=== PATIENT | male | born 2000 | race African-American/Black ===

== ENCOUNTER 2019-01-21 23:10 | Emergency (ER) | payer SELFPAY ==
[2019-01-21 23:16] VITALS: BP 127/64; PULSE 81; BMI 26.2
--- NOTE | 2019-01-22 00:15 | PDOC ---
History of Present Illness - General Chief Complaint: Pain Stated Complaint: L KNEE PAIN Time Seen by Provider: 01/21/19 23:56 History Source: Patient - History of Present Illness Initial Comments: 01/22/19 00:13 18 year old male while playing basketball hurt left knee . " i felt like my knee joint came out of place." at 9.30 pm. patient unable to walk on it since. patient is able leg raise. patient incidentally noted to have temp 100.6. patient denies cough, URI sx, abdominal pain, urinary symptoms, headache. patient reports that he has been playing outside . NO PMHX Past History - Past Medical History Allergies/Adverse Reactions: Allergies Allergy/AdvReac Type Severity Reaction Status Date / Time No Known Allergies Allergy Verified 01/21/19 23:16 COPD: No - Suicide/Smoking/Psychosocial Hx Smoking History: Never smoked Review of Systems - Review of Systems Able to Perform ROS?: Yes Is the patient limited Thai proficient: No Constitutional: No: Symptoms Reported, See HPI, Chills, Diaphoresis, Fever, Loss of Appetite, Malaise, Night Sweats, Weakness, Weight Stable, Unintentional Wgt. Loss, Unexplained wgt Loss, Other HEENTM: No: Symptoms Reported, See HPI, Eye Pain, Blurred Vision, Tearing, Recent change in vision, Double Vision, Cataracts, Ear Pain, Ocular Prothesis, Ear Discharge, Nose Pain, Nose Congestion, Tinnitus, Nose Bleeding, Hearing Loss , Throat Pain, Throat Swelling, Mouth Pain, Dental Problems, Difficulty Swallowing, Mouth Swelling, Other Respiratory: No: Symptoms reported, See HPI, Cough, Orthopnea, Shortness of Breath, SOB with Exertion, SOB at Rest, Stridor, Wheezing, Productive cough, Hemoptysis, Other Musculoskeletal: Yes: Other (left knee pain) *Physical Exam - Vital Signs Last Vital Signs Temp Pulse Resp BP Pulse Ox 100.6 F H 81 18 127/64 99 01/21/19 23:13 01/21/19 23:13 01/21/19 23:13 01/21/19 23:13 01/21/19 23:13 - Physical Exam General Appearance: Yes: Appropriately Dressed Respiratory/Chest: positive: Lungs Clear, Normal Breath Sounds Gastrointestinal/Abdominal: positive: Normal Bowel Sounds, Soft. negative: Tender Extremity: positive: Normal Capillary Refill, Normal Inspection, Normal Range of Motion, Other (able to leg raise . has swelling and pain to left lateral inner aspect of left knee. no displaced patella noted. ) Integumentary: positive: Normal Color, Dry, Warm Neurologic: positive: Fully Oriented, Alert, Normal Mood/Affect Progress Note - Progress Note Progress Note: A: left knee sprain P: RICE knee immobilizer Ortho follow up *DC/Admit/Observation/Transfer Diagnosis at time of Disposition: Left knee sprain Qualifiers: Encounter type: initial encounter Involved ligament of knee: unspecified ligament Qualified Code(s): S83.92XA - Sprain of unspecified site of left knee, initial encounter - Discharge Dispostion Disposition: HOME - Referrals Referrals: Jose Neal MD [Primary Care Provider] - Tien Lawrence MD [Staff Physician] - Call tomorrow - Patient Instructions Printed Discharge Instructions: Knee Sprain Additional Instructions: continue ice for the first 24 hours. Elevate knee as much as possible. keep knee immobilizer on. You may take ibuprofen every 6 hours as needed for pain. follow-up with an orthopedic doctor as soon as possible A referral was given to you. Return to the emergency room for any worsening symptoms. - Post Discharge Activity Forms/Work/School Notes: Back to Work
[2019-01-22] MEDS ORDERED: KETOROLAC TROMETHAMINE 30 MG/1 ML VIAL IM ONE (00:16)
[2019-01-22] MEDS ORDERED: KETOROLAC TROMETHAMINE 30 MG/1 ML VIAL ONE (00:54)
[2019-01-22] MEDS ORDERED: ACETAMINOPHEN 325 MG TABLET (FP) PO ONE (01:18)
[2019-01-22] MEDS ORDERED: ACETAMINOPHEN 325 MG TABLET (FP) ONE (01:21)
[2019-01-22 02:52] VITALS: TEMP 98.6
== END 2019-01-22 02:10 | disposition home or self-care (01) ==
LOC: JER 23:10
PROC: 2W3RXYZ Immobilization of Left Lower Leg using Other Device (ICD-10-PCS; principal; 2019-01-21)
PROC: 3E0233Z Introduction of Anti-inflammatory into Muscle, Percutaneous Approach (ICD-10-PCS; 2019-01-21)
DX: S83.8X2A Sprain of other specified parts of left knee, initial encounter (principal); X50.9XXA Other and unspecified overexertion or strenuous movements or postures, initial encounter; Y93.67 Activity, basketball; Y92.310 Basketball court as the place of occurrence of the external cause; Y99.8 Other external cause status
CPT/HCPCS: 73562-TC-LT-FY; 99282-25